=== PATIENT | male | born 1990 | race Caucasian/White ===

== ENCOUNTER → 2016-08-21 | Outpatient (CLI) | payer BC ==
[~2016-08-21] MED LIST: CIPR0.3S OP; VNTHFA/IN INH
[2016-08-21 16:41] LABS: BASO % 0.8 %; BASO ABS # 0.05 K/uL (0-0.2); COMPLETE YES; EOS % 3.3 %; HEMATOCRIT 44.8 % (42-52); IG% 0.3 %; LYMPH % 31.9 %; LYMPH ABS # 2.01 K/uL (1.2-3.4); MEAN CELL VOLUME 88.4 fL (80-100); MEAN CORPUSCULAR HEMOGLOBIN 30.6 pg (25-34); MEAN CORPUSCULAR HGB CONC 34.6 g/dl (32-36); MONO % 9.5 %; NEUT % 54.2 %; PLATELET COUNT 265 K/uL (130-400); RED BLOOD COUNT 5.07 M/uL (4.7-6.1); WHITE BLOOD COUNT 6.31 K/uL (4.8-10.8)
[2016-08-21 17:32] LABS: ALB/GLOB RATIO 1.1 (0.9-2); ALKALINE PHOSPHATASE 73 U/L (45-117); ALT/SGPT 93 U/L (12-78); BLOOD UREA NITROGEN 10 mg/dl (7-18); BUN/CREATININE RATIO 11.1 (10-20); CALCIUM 9.3 mg/dl (8.5-10.1); CARBON DIOXIDE 28 mmol/L (21-32); CHLORIDE 104 mmol/L (98-107); CREATININE 0.93 mg/dl (0.60-1.40); GLUCOSE 85 mg/dl (70-99); SODIUM 139 mmol/L (136-145)
[2016-08-21 17:45] LABS: AST/SGOT 33 U/L (15-37); C-REACTIVE PROTEIN < 0.29 mg/dl (0-0.29)
== END | disposition home or self-care (01) ==
LOC: C.LAB1850 15:06
PROVIDERS: ATTEND Internal Medicine Infectious Disease
DX: R59.1 Generalized enlarged lymph nodes (principal)

== ENCOUNTER 2017-01-15 06:39 | Emergency (ER) | payer BC ==
[~2017-01-15] VITALS: Ht 175.3 cm; Wt 83.4 kg
[2017-01-15 06:43] VITALS: TEMP 36.7; Ht 175.3 cm; Wt 83.4 kg
[2017-01-15] MEDS ORDERED: VNTHFA/IN INH (06:54)
[2017-01-15] MEDS ORDERED: PROPARACAINE HCL 0.5% OP SOLN 15 ML BTL OP ONE (07:00)
[2017-01-15] MEDS ORDERED: CIPR0.3S OP (07:15)
[2017-01-15 07:21] VITALS: BP 114/74; PULSE 76; O2SAT 97
--- NOTE | 2017-01-15 14:48 | EMERGENCY ROOM VISIT NOTE ---
ED Visit Note First contact with patient: 06:55 Chief Complaint: I have a piece of metal in my left eye. History of Present Illness: Mr. Jay is a 26-year-old white male who ambulates into the ED complaining of a foreign body sensation in the left eye. Patient reports just today approximately noon he was cutting a piece of metal and felt like one of the pieces of metal went into his left eye. He does report he was wearing safety glasses. Since that time he has had a constant foreign body sensation perceived in the lateral aspect of the left eye. He cannot describe his discomfort. He rates his discomfort 3/10. The pain is nonradiating. He has not identified any aggravating or alleviating factors related to this discomfort. He has not taken any medication for this discomfort prior to arrival at the hospital. Associated with his discomfort he reports he has had tearing. He denies headache, dizziness, lightheadedness, visual changes, fevers, chills, sweats, skin eruptions, skin color changes, previous significant eye diseases or trauma. Review of Systems: As noted above in history of present illness. 8 body systems were reviewed and found to be negative as noted above. Past Medical History: Asthma. Current Medications: Peter all. Allergies to Medications: Patient denies. Social History: Patient is currently employed; he feels safe in his home environment; he denies tobacco use and admits to alcohol use. Tetanus Immunization Status: Patient reports up-to-date. Physical Examination: Vital Signs: Date Time Temp Pulse Resp B/P (MAP) Pulse Ox O2 Delivery O2 Flow Rate FiO2 01/15/17 06:43 36.7 79 18 117/79 96 Room Air GENERAL: 26-year-old male in mild distress due to pain, nontoxic-appearing, afebrile and hemodynamically stable. NEUROLOGICAL: Awake, alert and oriented to person, place and time. Answering questions appropriately and following commands. Normal gait. Good hand eye coordination. SKIN: Warm, dry and pink. No soft tissue eruptions or trauma noted. HEENT: Atraumatic and normocephalic. PERRLA. EOMI without nystagmus. Sclera mildly injected. Conjunctiva pink. No foreign bodies were noted under the eyelids are embedded in the cornea. Anterior chamber is clear. Visual acuity is 20/20 bilaterally without correction. On slit lamp examination with staining no foreign bodies were found. He did have a small corneal abrasion at the 7 o'clock position. ED Course: Patient is assessed as noted above. Alcaine was used to anesthetize the ice for examination. Patient was educated about today's findings and instructed on his treatment plan ; he verbalized understanding and agreement with this plan. Clinical Impression: Left corneal abrasion. Decision-Making: Initially my differential diagnosis I considered foreign body, corneal abrasion, conjunctivitis and other causes. Disposition: Patient discharged home in stable condition; prior to departure he was reassessed and subjectively reported he was pain and symptom-free. Plan: Patient was encouraged to alternate ibuprofen and acetaminophen as needed for pain. Patient was prescribed Ciloxan ophthalmic solution and instructed on achieves. Patient was encouraged to follow-up with solar installation technician or return to the ED in 36-48 hours for recheck. Patient was encouraged return the ED sooner for worsening/uncontrolled pain, headaches, visual changes, fevers or any new/concerning symptoms.
== END 2017-01-15 07:21 | disposition home or self-care (01) ==
LOC: C.EDB 06:40
DX: S05.02XA Injury of conjunctiva and corneal abrasion without foreign body, left eye, initial encounter (principal); W20.8XXA Other cause of strike by thrown, projected or falling object, initial encounter; J45.909 Unspecified asthma, uncomplicated